=== PATIENT | female | born 1990 | race African-American/Black ===

== ENCOUNTER 2021-02-15 16:24 | Emergency (ER) | payer OTHER, SELFPAY ==
[2021-02-15 17:01] VITALS: BP 106/60; PULSE 86; RESP 16; TEMP 37.6; O2SAT 99
--- NOTE | 2021-02-15 17:30 | ED.URI ---
HPI - URI/Sore Throat General Chief Complaint: Upper Respiratory Infection Stated Complaint: bodyaches/bianchi/sore throat Source: patient and RN notes reviewed Limitations: no limitations History of Present Illness HPI Narrative: The patient, a smoker/nondrinker on minimal meds , presents with 2-day history of chills, loose stools, nonproductive cough and associated myalgias with headache. No fever measured, loss of taste/smell, CP, vomiting/ dehydration, S OB. Peimb-gb-[id number] testing for Covid is positive Related Data Allergies Allergy/AdvReac Type Severity Reaction Status Date / Time No Known Allergies Allergy Mild Verified 02/15/21 17:01 Review of Systems Review of Systems: General/Constitutional: No weight loss,Possible fever Eyes: N0: Redness,discharge Ears/Nose/Throat: No: Epistaxis,ear discharge Respiratory: Denies: Hemoptysis Gastrointestinal: No Vomiting, Bleeding-rectal Skin: No Lumps, eruption Neurologic: No Focal Weakness,Sz Hematologic: Denies: Petechiae/Purpura Psychiatric: No: Suicida ideationl All Other Systems: Reviewed and Negative PMFSH Comments At time of signature, agree with nursing past medical, surgical, social and family history. There is no relevant family history pertinent to the presenting complaint Exam Narrative: General Appearance: Well appearing, Well nourished EYE: PERRLA, Conjunctiva clear Ears: Auditory canal normal, TM normal Nose: Rhinorrhea, Mucousal erythema Mouth/Throat: MM moist, Uvula midline, Pharyngeal erythema Neck: Supple, No adenopathy Respiratory: No respiratory distress, Breath sounds equal, Clear to auscultation Cardiovascular: RRR, No JVD Musculoskeletal: Non tender, Normal strength Skin: Warm, Dry Neurological: A&O x3, CN II-XII intact Psychiatric: Normal mood, Normal affect Course Vital Signs Vital signs: Vital Signs Temperature 99.7 F H 02/15/21 17:01 Pulse Rate 86 02/15/21 17:01 Respiratory Rate 16 02/15/21 17:01 Blood Pressure 106/60 02/15/21 17:01 Pulse Oximetry 99 02/15/21 17:01 Temperature 99.7 F H 02/15/21 17:01 Pulse Rate 86 02/15/21 17:01 Respiratory Rate 16 02/15/21 17:01 Blood Pressure 106/60 02/15/21 17:01 Pulse Oximetry 99 02/15/21 17:01 MDM - URI/Sore Throat Lab Data Labs: Lab Results 02/15/21 Range/Units 17:14 POC SARS CoV-2 Ag Positive (Negative) Discharge Plan Discharge Clinical Impression: COVID-19, Headache due to viral infection Patient Disposition: Home, Self-Care Condition: Stable Instructions: COVID-19 (Coronavirus Disease 2019) (ED) Additional Instructions: Isolate yourself, and inform close contacts who then should quarantine Take supplement vitamins D, B, C, zinc and baby aspirin daily Call your PMD for consideration for antivirals, monoclonal antibodies Consider getting pulse ox and return for walking pulse oximetry <93% COnsider reviewing youTube 'If you get covid Dr Lester Consider allow low fever, then begin treat for fevers > 102 with tylenol You may use OTC preparations like Flonase, cough syrups, etc Prescriptions: New benzonatate 100 mg capsule 100 mg PO TID PRN (Reason: cough) Qty: 20 RF: 2 fluticasone propionate [Flonase Allergy Relief] 50 mcg/actuation spray,suspension 2 spray NASAL DAILY Qty: 15.8 RF: 0 codeine-guaifenesin 7.5-225 mg/5 mL liquid 7.5 ml PO Q4-6H PRN (Reason: cough) Qty: 473 RF: 0 Follow-up/Referrals: UNKNOWN,DOCTOR [Primary Care Provider] - Stand Alone Forms: Work/School Release IP
== END 2021-02-15 17:45 | disposition home or self-care (01) ==
PROVIDERS: Emergency Provider Emergency Medicine
DX: U07.1 COVID-19 (principal)
CPT/HCPCS: 87426; 99213; C9803; G0463

== ENCOUNTER 2022-06-19 18:13 | Emergency (ER) | payer OTHER, MEDICAID, SELFPAY ==
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
[2022-06-19 18:28] VITALS: BP 116/72; PULSE 75; RESP 18; TEMP 36.6; O2SAT 100
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
[2022-06-19 20:48] VITALS: PULSE 74; RESP 16; O2SAT 99
== END 2022-06-19 20:49 | disposition home or self-care (01) ==
PROVIDERS: Emergency Provider Physician Assistant
DX: S99.912A Unspecified injury of left ankle, initial encounter (principal); S49.92XA Unspecified injury of left shoulder and upper arm, initial encounter; S29.9XXA Unspecified injury of thorax, initial encounter; V43.62XA Car passenger injured in collision with other type car in traffic accident, initial encounter
CPT/HCPCS: 71110; 73060; 73610; 99284